=== PATIENT | male | born 1990 | race Hispanic/Latino ===

== ENCOUNTER 2018-03-16 00:36 | Emergency (ER) | payer BC ==
[2018-03-16 01:52] LABS: #Basophils 0.1 thou/uL (0.0-0.2); #Eosinphils 0.3 thou/uL (0.0-0.7); #Lymphocytes 2.8 thou/uL (1.20-3.40); #Monocytes 0.5 thou/uL (0.11-0.59); #Neutrophils 4.9 thou/uL (1.40-6.50); %Lymphocytes 32.6 % (21.0-51.0); %Monocytes 5.9 % (0.0-10.0); %Neutrophils 57.5 % (42.0-75.0); Hemoglobin 15.2 g/dL (14.0-18.0); Mean Corpuscular HGB CONC 36.2 g/dL (32.0-36.0); Mean Corpuscular Hemoglobin 31.8 pg (27.0-31.0); Mean Corpuscular Volume 87.9 fL (78.0-98.0); Mean Platelet Volume 8.5 fL (7.4-10.4); Platelet Count 218 thou/uL (130-400); RBC Distribution Width 11.3 % (11.5-14.5); Red Blood Cell (RBC) Count 4.77 mill/uL (4.70-6.10); White Blood Cell (WBC) Count 8.6 thou/uL (4.8-10.8)
[2018-03-16] MEDS ORDERED: Acetaminophen 500 MG TAB ONE (01:52)
[2018-03-16] MEDS ORDERED: Metoclopramide HCl 10 MG/2 ML VIAL ONE (01:52)
[2018-03-16 02:15] LABS: ALT (SGPT) 44 U/L (8-55); AST (SGOT) 27 U/L (5-34); Albumin 4.4 g/dL (3.5-5.0); Alkaline Phosphatase 88 U/L (40-150); Anion Gap 14 mmol/L (10-20); BUN (Urea Nitrogen) 16 mg/dL (8.9-20.6); Bilirubin, Total 0.2 mg/dL (0.2-1.2); Calc. Creatinine Clearance 0 mL/min (70-130); Calcium 9.9 mg/dL (7.8-10.44); Carbon Dioxide 23 mmol/L (22-29); Chloride 105 mmol/L (98-107); Estimated GFR-MDRD Greater than 90; Globulin 3.4 g/dL (2.4-3.5); Glucose 111 mg/dL (70-105); Potassium 4.1 mmol/L (3.5-5.1); Protein, Total 7.8 g/dL (6.0-8.3); Sodium 138 mmol/L (136-145)
--- NOTE | 2018-03-16 08:12 | CT ---
PRELIMINARY REPORT/[facility]/EMERGENTY AFTER-HOURS PROCEDURE CT Head Without Contrast EXAM DATE/TIME: 03/16/2018 1:51 AM CLINICAL HISTORY: 27 years old, male; Pain; Headache; Headache not specified; Patient HX: Er7, no prev, m25 reports to ed C/O CAMPOS. PT reports CAMPOS started yesterday morning and was mild and persistent all day. Patient repor ts went to bed tonight when the pain became worse and had associated dizziness and blurred vision. Patient reports no HX of CAMPOS at this same degree, however has had HX of CAMPOS causing him to expe rience dizziness. PT also reports cough and nasal congestion over the last week. PT denies cp, nausea or vomiting. PT denies taking anything for the pain. TECHNIQUE: Axial computed tomography images of the head/brain without contrast. COMPARISON: No relevant prior studies available. FINDINGS: Brain: No acute findings. No hemorrhage. No significant white matter disease. No edema. Ventricles: No acute findings. No ventriculomegaly. Bones/joints: No acute fracture. Sinuses: No acute findings. No significant air-fluid levels. Mastoid air cells: No acute findings. No mastoid effusion. Soft tissues: No acute findings. IMPRESSION: No acute intracranial abnormality. Thank you for allowing us to participate in the care of your patient. Dictated and Authenticated by: Tristen Bran MD 03/16/2018 2:37 AM Central Time ([place] & [place]) FINAL REPORT HEAD CT WITHOUT CONTRAST: DATE: 03/16/2018. COMPARISON: None. HISTORY: Headache. FINDINGS: I agree with the preliminary [facility] report. No intracranial hemorrhage, midline shift, mass effect, o r ventricular enlargement. The imaged paranasal sinuses and mastoid air cells are well aerated with no displaced calvarial fract ure seen. IMPRESSION: No acute findings. POS: [facility]
== END 2018-03-16 03:48 | disposition home or self-care (01) ==
LOC: ERS 00:36
DX: R51 Headache (principal)
CPT/HCPCS: 36415; 70450; 80053; 84484; 85025; 93005; 96361; 96365; J2765